=== PATIENT | female | born 1935 | race Caucasian/White ===

== ENCOUNTER → 2022-04-23 10:35 | Outpatient (POV) | payer MEDICARE, SELFPAY ==
[2022-04-23 11:45] VITALS: BP 192/92; PULSE 82; RESP 20; TEMP 36.5; O2SAT 97; BMI 23.6
--- NOTE | 2022-04-23 13:50 | HMH.PMCON ---
Assessment and Plan (1) Sacroiliitis Status: Acute Category: Medical Code(s): M46.1 - Sacroiliitis, not elsewhere classified (2) Greater trochanteric bursitis Status: Acute Category: Medical Code(s): M70.60 - Trochanteric bursitis, unspecified hip (3) Chronic low back pain Status: Acute Category: Medical Code(s): M54.50 - Low back pain, unspecified; G89.29 - Other chronic pain - Assessment and plan all Dx Assessment and Plan for all problems:: Patient presents today with worsening low back pain that radiates mainly to the right lower extremity. On exam today, patient is tender to palpation around the right SI joint and right greater trochanteric bursa. Patient does have a positive SI exam. We will schedule this patient for a right SI injection and record trochanteric bursa injection. We will try to obtain the records from her pain clinic. There are multiple pain clinics in [place]. We will see if the patient can remember were she had her imaging done. If not, we will obtain an updated lumbar MRI. I will start this patient on tramadol 50 mg twice a day as needed. We will obtain UDS today. Patient has been instructed to contact the clinic with any concerns before the next appointment. Dr. Diez has reviewed this note and agrees with this plan of care. This note was dictated using voice recognition software and make contain errors or omissions. HPI - Data of Consult Patient: new to practice Consult date: 04/23/22 Requesting Physician: ADRIANE Garcia Primary Care Provider: Dahlia Iglesias APRN - Consult Narrative Reason for consult: LBP, vanessa hip pain History of present illness: Ms. Sosa is a 87 year old female who presents today as a new patient. Patient is referred by Dahlia Iglesias APRN. Thank you for the referral. Pt presents today with chronic LBP that mainly radiates to the RLE. Denies any precipitating factors such as falls or traumas. She states that she cannot tolerate any full activity such as sitting, standing, and walking. She has difficulty getting up from a sitting position. She was being followed at a pain clinic in [place], [place]. She recently moved to [place] to be with her daughter. She states that she has tried injective therapy in the past and was being managed with Hydrocodone 10mg QID. She has tried and failed conservative therapies in the past such as PT and home exercises > 6 weeks. She states that she had imaging done of her low back before moving to [place]. She does not remember the clinic where she got this from. Rates pain today as 03/09. Javier [id number]. CC: ADRIANE Garcia [facility] History I have reviewed the patient's past medical history: Yes Medical History: Reports:: Diabetes Mellitus Type 2, Hyperlipidemia, Hypertension Denies:: Cancer, Diabetes Mellitus Type 1, MRSA *Have you ever received a pneumonia vaccine?: Yes *Have you received a flu vaccine this season?: Yes Other Medical History: Reports: Arthritis Laterality Cases: Left: Lumpectomy Other Surgeries: Yes: Cholecystectomy, Hysterectomy-Total Amputation: No - *Social History Smoking Status: Never smoker Alcohol Intake: never *Occupational Status:: retired Housing: house Household Members: other *Travel in the last 8 weeks: None Family Hx:: No significant family history Review of Systems - Review of Systems Review of Systems: General: No recent weight changes, no fever, no sleep disturbances Respiratory: No cough, no shortness of air, no recurring pulmonary infections Cardiovascular/peripheral vascular: No chest pain, no palpitations, no edema, no shortness of breath Gastrointestinal: No new onset incontinence, normal bowel movements reported Genitourinary: No new onset incontinence Musculoskeletal: Low back pain, right hip pain Psychiatric: [Normal mood/affect] Neurological: [Denies weakness in extremities], [denies balance issues] Meds Home Medications Medication Instructions Recorded Conf
== END ==
PROVIDERS: PCP Nurse Practitioner; Visit Provider Student in an Organized Health Care Education/Training Program
DX: M46.1 Sacroiliitis, not elsewhere classified (principal); M70.60 Trochanteric bursitis, unspecified hip; M54.50 Low back pain, unspecified; Z79.899 Other long term (current) drug therapy
CPT/HCPCS: 99202; G0463

== ENCOUNTER → 2022-04-23 11:49 | Outpatient (CLI) | payer MEDICARE, SELFPAY ==
[2022-04-23 13:12] LABS: Barbiturates Screen,Urine Negative ng/ml (<200); Benzodiazepines Screen,Urine Negative ng/ml (<200)
[2022-04-23 13:13] LABS: Amphetamine/Metha Screen,Urine Negative ng/ml (<1000)
[2022-04-23 13:14] LABS: Cannabinoid Screen,Urine Negative ng/ml (<50); Methadone Screen,Urine Negative ng/ml (<300)
[2022-04-23 13:15] LABS: Cocaine Screen,Urine Negative ng/ml (<300)
[2022-04-23 13:16] LABS: Opiate Screen,Urine Negative ng/ml (<300)
[2022-04-23 13:17] LABS: Phencyclidine Screen,Urine Negative ng/ml (<25)
[2022-04-28 16:14] LABS: Opiates Negative (Cutoff=100)
== END ==
PROVIDERS: PCP Nurse Practitioner; Visit Provider Student in an Organized Health Care Education/Training Program
DX: Z79.891 Long term (current) use of opiate analgesic (principal)
CPT/HCPCS: 80305; 80361; 80365; G0480

== ENCOUNTER 2022-05-08 13:00 | Day surgery (SDC) | payer MEDICARE, SELFPAY ==
[2022-05-08 13:04] VITALS: BP 180/114; PULSE 98; RESP 20; TEMP 36.6; O2SAT 96; BMI 23.6
--- NOTE | 2022-05-08 13:29 | P.PCN_ITS ---
- Procedure Date: 05/08/22 Time: 13:29 Anesthesiologist:: Tee Mayfield CRNA Complications:: None Pre-procedure Diagnosis:: Right sacroiliitis. Right trochanteric bursitis. Post-procedure Diagnosis:: Same Indications for Procedure:: This patient is a pleasant 87-year-old female that comes our clinic today for right SI joint injection as well as right trochanteric bursa injection. Patient has extreme point tenderness over both areas. She rates pain 8/10. Patient states she has difficulty walking any length. Sitting for any length of time. Laying on her right side is very painful on the lateral hip. Procedure Details:: Procedure: Right sacroliliac joint injection under fluoroscopy Informed consent was obtained and the risk and benefits of the procedure were explained to the patient.~ The patient was taken to the procedure room and noninvasive monitors were placed including noninvasive blood pressure cuff and pulse oximeter.~ The patient was placed prone on the procedure table.~ The~ right hip was cleansed using Betadine as a cleansing solution.~ C-arm fluorosocpy was used to view the right SI joint.~ The skin and subcutaneous tissues were anesthetized using Lidocaine 1.5% and a 25-gauge needle.~ After this, a 22-gauge spinal needle was inserted under fluoroscopic guidance into the inferior aspect of the right SI joint.~ Omnipaque dye was injected and a good spread was seen throughout the joint.~ After this, approximately 5 mL of bupivacaine 0.25% and Depo-Medrol 40 mg was incrementally injected into the sacroiliac joint.~ The patient tolerated the procedure well with no complications.~ The patient was observed in the Pain Clinic, then discharged home neurologically intact.~ Procedure: Right trochanteric bursa injection under fluoroscopy We then moved to the right trochanteric bursa.~ C-arm fluoroscopy was used to view the left greater trochanter.~ The skin and subcutaneous tissues overlying the right greater trochanter were anesthetized using lidocaine, 1.5% and a 25- gauge needle.~ After this, a 22-gauge spinal needle was inserted and advanced until it contacted the right greater trochanter.~ Dye was injected and good spread was seen throughout the right trochanteric bursa. After this, approximately 5 mL of bupivacaine, 0.25% and Depo-Medrol, 40 mg was incrementally injected into the right right trochanteric bursa.~ The patient tolerated the procedure well with no complications. Plan and Disposition:: Patient was given tramadol 50 mg 1 p.o. twice daily at her 04/23/2022 visit. Aníbal moore states that the pain medicine has helped her significantly. However, she needs a refill. I think this would be appropriate. She does not complain of any side effects from the pain medication. We will send in a refill prescription tramadol 50 mg 1 p.o. twice daily #60. Patient was discharged without incident.
[2022-05-08 13:40] VITALS: BP 179/83; PULSE 82; RESP 20; O2SAT 95
== END 2022-05-08 13:40 | disposition home or self-care (01) ==
LOC: SC.PAINP 13:03
PROVIDERS: PCP Nurse Practitioner; Visit Provider Nurse Anesthetist, Certified Registered
DX: M70.61 Trochanteric bursitis, right hip (principal); M46.1 Sacroiliitis, not elsewhere classified
CPT/HCPCS: 20610; 27096; 77002; G0260; J1040

== ENCOUNTER 2022-06-06 11:02 | Emergency (ER) | payer MEDICARE, SELFPAY ==
[2022-06-06] VITALS (9 sets, daily range): BP systolic 150–187; BP diastolic 84–100; PULSE 62–99; RESP 18; TEMP 36.5; O2SAT 94–98; BMI 23.6
--- NOTE | 2022-06-06 10:47 | PC.NURSE ---
1042 ED MD AT BEDSIDE
--- NOTE | 2022-06-06 10:54 | XR_ITS ---
FINAL REPORT CLINICAL HISTORY: fall FINDINGS: 2 views of the left hip and an AP pelvis were obtained. There are chronic fracture of the bilateral pubic rami. The bones are osteopenic. There is no definite acute fracture. There is a chronic calcification adjacent to the left ischial tuberosity. Vascular calcifications are present. IMPRESSION: No definite acute fracture. Should symptoms worsen or persist consider CT or MRI. Reviewed, Interpreted and Dictated by Zoltan Monreal III, MD Transcribed by Devendra Foy Authenticated and [facility]
--- NOTE | 2022-06-06 10:54 | XR_ITS ---
FINAL REPORT CLINICAL HISTORY: fall FINDINGS: Multiple views of the mid and distal left femur were obtained. There is no acute fracture or dislocation. There is mild degenerative change at the knee. Vascular calcifications are present. The bones are osteopenic. IMPRESSION: No acute process. Reviewed, Interpreted and Dictated by Zoltan Monreal III, MD Transcribed by Devendra Foy Authenticated and [facility]
--- NOTE | 2022-06-06 10:54 | PC.NURSE ---
ROUNDED ON PT, PT REQUESTING PAIN MEDICATION. NOTIFIED
--- NOTE | 2022-06-06 11:02 | HMH.EDGENADL ---
Discharge Plan Disposition Patient Disposition: Home, Self-Care Condition: Fair Prescriptions Prescriptions: No Action tramadol 50 MG tablet 50 mg PO BID Qty: 60 0RF lisinopril 20 MG tablet 20 mg PO DAILY simvastatin 20 MG tablet 20 mg PO DAILY glimepiride 4 MG tablet 4 mg PO DAILY buspirone 15 MG tablet 15 mg PO TID empagliflozin 25 MG tablet 25 mg PO DAILY Referrals Follow up/Referrals: Juvencio Cao DO [Staff Physician] - See instructions (Pelvic fractures, stable) Activity Restrictions/Add. Instructions Additional Instructions/Restrictions: You have been evaluated for fall, diagnosed with fracture of the left acetabulum, part of the pelvis. Please use your walker at all times. Try to bear little weight on your left leg. Follow-up with orthopedics, Dr. Cao. Call the office for urgent follow-up. Return to the emergency department at once for any new or worsening symptoms. Clinical Impressions Clinical Impression: Closed pelvic ring fracture Instructions Patient Instructions: DI for Pelvic Fracture Discharge ED Provider: Cony Stahl Adult [facility] General Chief complaint: Fall Stated complaint: PAIN AFTER FALL Time Seen by Provider: 06/06/22 11:02 Mode of Arrival: EMS Limitations: No Limitations Description of Symptoms (Recalled from ER Triage Doc. by RN): PT SLIPPED AND FELL LAST SATURDAY TO LEFT HIP. INCREASED PAIN History of Present Illness HPI narrative: 87-year-old female presenting to the emergency department with left hip pain after a fall. Incident happened on Saturday, 4 days ago. She was at a garage sale, walking on steps that were wet when she lost her balance and fell. She landed on her left side, left buttock. Was able to get up with help. She had immediate pain that is described as sharp. Now it is throbbing, worse with motion, walking and bending at the hip. No radiation to the knee or lower leg. No numbness, weakness, tingling in her foot. No medications prior to arrival. She takes daily aspirin, no blood thinners. No other injuries in the fall. Related Data Home Medications Medication Instructions Recorded Confirmed buspirone 15 mg tablet 15 mg PO TID mood 04/23/22 05/08/22 empagliflozin 25 mg tablet 25 mg PO DAILY Diabetes 04/23/22 05/08/22 glimepiride 4 mg tablet 4 mg PO DAILY Diabetes 04/23/22 05/08/22 lisinopril 20 mg tablet 20 mg PO DAILY blood pressure 04/23/22 05/08/22 simvastatin 20 mg tablet 20 mg PO DAILY Cholesterol 04/23/22 05/08/22 Previous Rx's Medication Instructions Recorded tramadol 50 mg tablet 50 mg PO BID #60 tabs 05/08/22 Allergies Allergy/AdvReac Type Severity Reaction Status Date / Time Sulfa (Sulfonamide AdvReac Verified 05/08/22 13:28 Antibiotics) PFSH PFS Social History Smoking Status: Never smoker alcohol intake: never current occupational status: retired Travel in the last 8 weeks: None household members: other housing: house caffeine: Yes ROS Obtained: Yes All systems reviewed & no additional complaints except as documented Constitutional Constitutional: Denies frequent falls (one time, lost balance) and Denies headache(s) Eyes Eyes: Denies blurry vision and Denies loss of vision ENT Ears, Nose, Mouth, and Throat: Denies headache(s) and Denies neck pain Cardiovascular Cardiovascular: Denies chest pain, Denies dyspnea, Denies palpitations and Denies syncope Respiratory Respiratory: Denies cough and Denies dyspnea Gastrointestinal Gastrointestingal: Denies abdominal pain, nausea or vomiting Musculoskeletal Musculoskeletal: Reports as per HPI, Denies deformity, Reports joint stiffness (left hip), Reports myalgias, Denies neck pain, Denies numbness and Reports stiffness Integumentary/Breasts Skin/Breast: Denies redness and Denies rash Neurologic Neurologic: Denies frequent falls (one time, lost balance), Denies headache(s), Denies loss of vision, Denies numbne
--- NOTE | 2022-06-06 11:06 | PC.NURSE ---
PT TO RADIOLOGY AT THIS TIME
--- NOTE | 2022-06-06 11:06 | PC.NURSE ---
PT GOING OVER FOR XRAY VIA STRETCHER
--- NOTE | 2022-06-06 11:17 | PC.NURSE ---
PT RETURNED FROM XR
--- NOTE | 2022-06-06 11:21 | PC.NURSE ---
PT BACK FROM RADIOLOGY
--- NOTE | 2022-06-06 12:38 | CT_ITS ---
FINAL REPORT TECHNIQUE: Axial images through the pelvis were performed by computed tomography. Sagittal and coronal reformatted images were obtained and reviewed. This study was performed with techniques to keep radiation doses as low as reasonably achievable (ALARA). Individualized dose reduction techniques using automated exposure control or adjustment of mA and/or kV according to the patient's size were employed. CLINICAL HISTORY: fall, pain FINDINGS: There is severe degenerative changes. The bones are osteopenic. There are chronic fractures of the bilateral inferior pubic rami. There is a superimposed acute fracture through the chronic fracture on the left. There are nondisplaced fractures of the left acetabulum quadrilateral plate and a nondisplaced fracture of the posterior column of the left acetabulum. Note is made of vascular calcification. IMPRESSION: Nondisplaced acute fractures of the left inferior pubic ramus, left acetabulum quadrilateral plate and left acetabulum posterior column. Reviewed, Interpreted and Dictated by Zoltan Monreal III, MD Transcribed by Makayla Kohli Authenticated and [facility]
--- NOTE | 2022-06-06 12:44 | PC.NURSE ---
PT GOING OVER FOR CT
--- NOTE | 2022-06-06 12:45 | PC.NURSE ---
PT TO CT AT THIS TIME
--- NOTE | 2022-06-06 14:14 | PC.NURSE ---
notified ER pt CT is resulted in the system
--- NOTE | 2022-06-06 14:34 | PC.NURSE ---
ORTHO PAGED AT THIS TIME, DR. MEADE
--- NOTE | 2022-06-06 14:34 | PC.NURSE ---
Yue hayden (Dr. Cao)
== END 2022-06-06 15:45 | disposition home or self-care (01) ==
PROVIDERS: Emergency Provider Emergency Medicine
DX: S32.402A Unspecified fracture of left acetabulum, initial encounter for closed fracture (principal); Z79.1 Long term (current) use of non-steroidal anti-inflammatories (NSAID); Z79.899 Other long term (current) drug therapy; Z88.2 Allergy status to sulfonamides; W01.198A Fall on same level from slipping, tripping and stumbling with subsequent striking against other object, initial encounter
CPT/HCPCS: 72192; 73502; 73552; 99285

== ENCOUNTER → 2022-06-14 14:45 | Outpatient (POV) | payer MEDICARE, SELFPAY ==
--- NOTE | 2022-06-14 15:05 | A.OFFVIS_ITS ---
[facility] Pain Management SOAP Note Subjective:: Patient is a pleasant 87-year-old female who presents today for follow-up via telehealth. Patient is currently at home during this telehealth visit. We are currently treating the patient for right sacroiliitis, right trochanteric bursitis, chronic low back pain. Today the patient rates her pain a 10 out of 10. She states her pain is primarily in her pelvis and describes it as a sharp, aching sensation that is constant and worse with increased activity. She states 2 weeks ago she was stepping up onto her porch when it had been raining and she ended up slipping and falling back. Patient did fracture her left acetabulum. She was consulted by Dr. Cao. His office did say that these fractures are stable and has recommended that she limit ambulation with minimal weightbearing on her left lower extremity. She does use a walker and a wheelchair at home. She is to follow-up with orthopedics in clinic. Patient has been referred to physical therapy to help with ambulation during this time. Patient has been prescribed tramadol 50 mg twice daily. Patient denies any side effects from this medication. She states this medication does adequately manage her pain. She is requesting a refill at today's visit. Her Javier is [phone] with a morphine equivalent of 0. It has been reviewed and appropriate. Review of Systems: General: No recent weight changes, no fever, no sleep disturbances Respiratory: No cough, no shortness of air, no recurring pulmonary infections Cardiovascular/peripheral vascular: No chest pain, no palpitations, no edema, no shortness of breath Gastrointestinal: No new onset incontinence, normal bowel movements reported Genitourinary: No new onset incontinence Musculoskeletal: Chronic back pain, pelvic pain Psychiatric: [Normal mood/affect] Neurological: [Denies weakness in extremities], [denies balance issues] Objective:: General: Alert and oriented x3, pleasant and cooperative Lungs: Patient is able to say complete sentences without dyspnea Neurological: Speech clear Assessment:: Right sacroiliitis, right trochanteric bursitis, chronic low back pain Plan:: Patient is having significant pain in her pelvic area following a fall that occurred 2 weeks ago where she fractured her acetabulum. Telehealth visit lasted roughly 10 minutes. I will refill the patient's tramadol 50 mg twice da taylor and provide a 1 month supply of this medication. We will follow-up with the patient in 1 month for reevaluation of symptoms. Patient has been advised of risks of oversedation with the prescribed medication. Narcan has been offered to the patient in the event of oversedation. Patient has been advised that a family member should also be educated regarding administration of Narcan. Patient has been instructed to contact the clinic with any concerns before the next appointment. Dr. Diez has reviewed this note and agrees with this plan of care. This note was dictated using voice recognition software and make contain errors or omissions. [facility] PFS Social History Smoking Status: Never smoker alcohol intake: never current occupational status: retired Travel in the last 8 weeks: None household members: other housing: house caffeine: Yes
== END | disposition home or self-care (01) ==
PROVIDERS: Visit Provider Nurse Practitioner Family
DX: M46.1 Sacroiliitis, not elsewhere classified (principal); M70.61 Trochanteric bursitis, right hip; M54.50 Low back pain, unspecified; G89.29 Other chronic pain
CPT/HCPCS: 99212; G0463

== ENCOUNTER → 2022-07-03 10:13 | Outpatient (POV) | payer MEDICARE, SELFPAY ==
[2022-07-03 10:28] VITALS: BP 141/74; PULSE 95; RESP 20; TEMP 36.7; O2SAT 97; BMI 23.6
--- NOTE | 2022-07-03 10:43 | EXP.PAIN.SOA ---
[facility] Pain Management SOAP Note Subjective:: Patient is a pleasant 87-year-old female who presents today for follow-up and medication refill. Patient is currently treated for right sacroiliitis, right trochanteric bursitis, chronic low back pain. Today the patient rates her pain a 10 out of 10. She states the pain is primarily in her low back/pelvis area and describes it as a sharp, aching sensation that is worse with increased activity. Patient previously fell and fractured her left acetabulum. She has been seeing Dr. Cao's office to stated the fracture was stable and recommended limited ambulation with minimal weightbearing on her left lower extremity. She has been in a wheelchair for the last 3 weeks. She states this week she has been able to start walking however she is having a lot of pain when she is doing this. She is currently managed with tramadol 50 mg twice a day however patient states that previously when she was in [place] she was on [place] 10 mg and this provided much better improvement of her symptoms. Patient states that the tramadol does not seem to do anything. Patient denies any side effects from these medications. Her Javier is [phone]. It has been reviewed and appropriate. Review of systems General: No recent weight changes, no fever, no sleep disturbances Respiratory: No cough, no shortness of air, no recurring pulmonary infections Cardiovascular/peripheral vascular: No chest pain, no palpitations, no edema, no shortness of air Gastrointestinal: No new onset incontinence, normal bowel movements reported Genitourinary: No new onset incontinence Musculoskeletal: Chronic back pain, pelvic pain Psychiatric: Normal mood and affect Neurological: Weakness in left extremity with some balance issues Objective:: Physical exam General: Alert and oriented x3, no acute distress, pleasant cooperative Lungs: Respirations even and unlabored, symmetrical chest expansion Eyes: PERRL Musculoskeletal: Flexion and extension of lumbar spine somewhat guarded secondary to pain, antalgic gait noted. Neurological: Speech clear, no gross sensory deficit Assessment:: Right sacroiliitis, right trochanteric bursitis, chronic low back pain, pelvic pain related to acetabulum fracture Plan:: Patient continues to have significant pain in her low back and pelvic area on the left side due to a healing fracture. I will send in a prescription for [place] 5 mg 3 times a day and give a 1 month supply of this medication. We will discontinue use of the tramadol. I will also send the patient for a physical therapy referral. We will see the patient back in 1 month. Patient will return to clinic in 1 month for reevaluation of symptoms, medication refill and follow-up. Patient has been counseled to contact the office with any questions or concerns prior to her next appointment date. Dr. Diez has read this note and agrees with this plan of care. This note was dictated using voice recognition software and may contain errors or omissions. PFSH PFS Social History Smoking Status: Never smoker alcohol intake: never substance use type: prescription drug current occupational status: retired Travel in the last 8 weeks: None household members: other housing: house caffeine: Yes
== END | disposition home or self-care (01) ==
PROVIDERS: PCP Nurse Practitioner; Visit Provider Nurse Anesthetist, Certified Registered
DX: M46.1 Sacroiliitis, not elsewhere classified (principal); M70.61 Trochanteric bursitis, right hip; M54.50 Low back pain, unspecified; G89.29 Other chronic pain; R10.2 Pelvic and perineal pain
CPT/HCPCS: 99212; G0463

== ENCOUNTER → 2022-07-05 12:11 | Outpatient (CLI) | payer MEDICARE, SELFPAY ==
--- NOTE | 2022-07-05 12:52 | XR_ITS ---
FINAL REPORT CLINICAL HISTORY: hip fracture COMPARISON: June 06, 2022 FINDINGS: LEFT HIP Two views views of the left hip including an AP pelvis were obtained. There is no acute fracture or dislocation. There are chronic pubic rami fractures which are visually stable. There are moderate degenerative changes in the lumbar spine and mild degenerative changes in the hips. There are vascular calcifications. IMPRESSION: Overall visually stable exam. Reviewed, Interpreted and Dictated by Zoltan Monreal III, MD Transcribed by Carmel Escalera Authenticated and [facility]
== END ==
LOC: RAD 12:12
PROVIDERS: PCP Nurse Practitioner; Visit Provider Orthopaedic Surgery
DX: S32.402A Unspecified fracture of left acetabulum, initial encounter for closed fracture
CPT/HCPCS: 73502

== ENCOUNTER → 2022-08-02 09:34 | Outpatient (POV) | payer MEDICARE, SELFPAY ==
[2022-08-02 10:16] VITALS: BP 141/97; PULSE 90; RESP 18; TEMP 36.6; O2SAT 97
--- NOTE | 2022-08-02 12:51 | EXP.PAIN.SOA ---
[facility] Pain Management SOAP Note Subjective:: Patient is a pleasant 87-year-old female who presents today for medication refill and follow-up. We are currently treating the patient for chronic low back pain, right sacroiliitis, right trochanteric bursitis. Today she rates her pain a 10 out of 10. Patient denies any new trauma or injury. Patient denies any change location or type of pain she experiences. Patient does state the pain is in her low back pelvis area. Patient did have a fall in the past however she had a stable fracture that was being treated by Dr. Cao's office who recommended limited ambulation with minimal weightbearing on her left lower extremity. Patient has started doing weightbearing exercises since the beginning of June however she states she continues to have extensive pain. We did switch the patient from tramadol to Rudyard 5 mg 3 times daily. Patient denies any side effects from this medication. Patient states it does help however previously when she was in [place] she was prescribed Rudyard 10 mg 3 times a day and it provided much better improvement. Patient is requesting an increase at today's visit. Her Javier is [phone]. It is been reviewed and appropriate. Review of Systems: General: No recent weight changes, no fever, no sleep disturbances Respiratory: No cough, no shortness of air, no recurring pulmonary infections Cardiovascular/peripheral vascular: No chest pain, no palpitations, no edema, no shortness of breath Gastrointestinal: No new onset incontinence, normal bowel movements reported Genitourinary: No new onset incontinence Musculoskeletal: Low back pain, pelvis pain Psychiatric: [Normal mood/affect] Neurological: [Denies weakness in extremities], [denies balance issues] Objective:: Physical Exam: General: Alert and oriented x3, no acute distress, pleasant and cooperative Lungs: Respirations even and unlabored, symmetrical chest expansion Eyes: PERRL Musculoskeletal: Flexion and extension of lumbar [spine] somewhat guarded secondary to pain, [antalgic gait noted] Neurological: Speech clear, no gross sensory deficit Assessment:: Chronic low back pain, right sacroiliitis, right trochanteric bursitis Plan:: Patient continues to experience significant pain in her low back and pelvis. Patient did have limited range of motion of her lumbar spine during today's visit. I will order compounding cream at today's visit. I will also refill the patient's Rudyard 5 mg 3 times a day and provide a 1 month supply of this medication. I will also add a muscle relaxer to her daily medication regimen. I will order tizanidine 4 mg 3 times daily and provide a 1 month supply of this medication. I have discussed with the patient that she may benefit from intrathecal pain pump therapy. Risk and benefits were discussed with the patient. Educational material were handed out to the patient. We will follow-up with the patient in 1 month. Patient will return to clinic in 1 month for reevaluation of symptoms, medication refill and follow-up. Patient has been advised of risks of oversedation with the prescribed medication. Narcan has been offered to the patient in the event of oversedation. Patient has been advised that a family member should also be educated regarding administration of Narcan. Patient has been instructed to contact the clinic with any concerns before the next appointment. Dr. Diez has reviewed this note and agrees with this plan of care. This note was dictated using voice recognition software and make contain errors or omissions. [facility] Social History Smoking Status: Never smoker alcohol intake: never substance use type: prescription drug current occupational status: retired Travel in the last 8 weeks: None household members: other housing: house caffeine: Yes
== END | disposition home or self-care (01) ==
PROVIDERS: PCP Nurse Practitioner; Visit Provider Nurse Practitioner Family
DX: M46.1 Sacroiliitis, not elsewhere classified (principal); M70.61 Trochanteric bursitis, right hip; M54.50 Low back pain, unspecified; G89.29 Other chronic pain
CPT/HCPCS: 99212; G0463

== ENCOUNTER → 2022-08-02 10:17 | Outpatient (CLI) | payer MEDICARE, SELFPAY ==
--- NOTE | 2022-08-02 10:22 | XR_ITS ---
FINAL REPORT CLINICAL HISTORY: hip fracture F/U COMPARISON: 07/05/2022 FINDINGS: Left hip Three views were obtained. There is no acute fracture or dislocation. There are chronic appearing pubic rami fractures. There are mild degenerative changes of the hips. Vascular calcification is identified. No acute soft tissue abnormality is identified. IMPRESSION: Stable exam. Reviewed, Interpreted and Dictated by Zoltan Monreal III, MD Transcribed by Makayla Kohli Authenticated and . [facility]
== END ==
PROVIDERS: PCP Nurse Practitioner; Visit Provider Orthopaedic Surgery
DX: S32.402A Unspecified fracture of left acetabulum, initial encounter for closed fracture (principal)
CPT/HCPCS: 73502; 99212; G0463